=== PATIENT | female | born 1950 | race Caucasian/White ===

== ENCOUNTER 2018-01-29 13:16 | Inpatient (IN) | payer OTHER ==
[~2018-01-29] VITALS: Ht 165.1 cm; Wt 83.9 kg
--- NOTE | 2018-01-29 13:21 | NUR ---
250ml infused by RA 73 enroute to ER, patient is AOx4, HOSKINS, +nausea with active vomiting noted (bile-colored gastric contents of small amount)
[2018-01-29] MEDS ORDERED: IV NORMAL SALINE 500 ML BAG IV ONE ×3 (13:30→16:15)
--- NOTE | 2018-01-29 13:32 | NUR ---
Another 250ml infused, monitored closely.
[2018-01-29] MEDS ORDERED: ONDANSETRON 4 MG/2 ML VIAL ONE (13:35)
[2018-01-29] MEDS ORDERED: ONDANSETRON IV *ER 4 MG/2 ML VIAL IV ONE (13:45)
--- NOTE | 2018-01-29 13:51 | NUR ---
SBP is low, MD notified. Patient is AOX4, calm and breathing easily, denies any discomfort, conversant, smiling appropriately, NAD.
[2018-01-29 14:27] LABS: BASOPHILS % (AUTO) 0.7 % (0.0-2.0); HEMATOCRIT 31.5 % (31.2-41.9); HEMOGLOBIN 10.3 g/dL (10.9-14.3); LYMPHOCYTES # (AUTO) 0.8 K/uL (20.0-40.0); LYMPHOCYTES % (AUTO) 26.5 % (20.5-51.5); MEAN CORPUSCULAR HEMOGLOBIN 33.5 uug (24.7-32.8); MEAN CORPUSCULAR HGB CONC 33 g/dL (32.3-35.6); MEAN CORPUSCULAR VOLUME 102.7 fL (75.5-95.3); MONOCYTES # (AUTO) 0.1 K/uL (2.0-10.0); MONOCYTES % (AUTO) 4.2 % (0.0-11.0); NEUTROPHILS # (AUTO) 1.9 K/uL (1.8-8.9); NEUTROPHILS % (AUTO) 67.6 % (38.5-71.5); PLATELET COUNT (AUTO) 166 K/uL (179-408); RED BLOOD CELL COUNT(AUTO) 3.07 MIL/uL (3.63-4.92); WHITE BLOOD COUNT (AUTO) 2.9 K/uL (3.8-11.8)
[2018-01-29 14:29] LABS: CREATININE 2.1 mg/dL (0.6-1.3); POTASSIUM 4.6 mmol/L (3.5-5.1)
[2018-01-29 14:35] LABS: BILIRUBIN,DIRECT 0.5 mg/dL (0.0-0.2); TOTAL PROTEIN, SERUM 4.9 g/dL (6.4-8.2)
[2018-01-29] MEDS ORDERED: ACID1TAB4 PO (14:46)
[2018-01-29] MEDS ORDERED: MIDO2.5T PO (14:46)
[2018-01-29] MEDS ORDERED: SODI650T PO (14:46)
[2018-01-29] MEDS ORDERED: FEBU40TA PO (14:46)
[2018-01-29] MEDS ORDERED: MAGN400T6 PO (14:46)
[2018-01-29] MEDS ORDERED: PANT40TA4 PO (14:46)
[2018-01-29] MEDS ORDERED: POTA10TA15 PO (14:46)
[2018-01-29] MEDS ORDERED: TRAM50TA2 PO (14:46)
[2018-01-29] MEDS ORDERED: ASPI81TA31 PO (14:46)
--- NOTE | 2018-01-29 15:04 | NUR ---
another 500ml infused, pt tolerating well
[2018-01-29 15:43] LABS: *BLOOD, URINE NEGATIVE (NEGATIVE); *CLARITY,URINE SLIGHTLY CLOUDY (CLEAR); *COLOR,URINE DARK YELLOW (YELLOW); *KETONES,URINE 1+ (NEGATIVE); *PROTEIN,URINE 1+ (NEGATIVE); *UROBILINOGEN,URINE 0.2 E.U./dl (NORMAL); LEUKOCYTE ESTERASE ,URINE NEGATIVE (NEGATIVE); NITRITE, URINE NEGATIVE (NEGATIVE); UGLUCOSE NEGATIVE (NEGATIVE)
[2018-01-29 15:44] LABS: *BILIRUBIN,URIN 2+ (NEGATIVE)
--- NOTE | 2018-01-29 15:44 | NUR ---
TOTAL of 1500ml normal saline was infused, pending results and disposition.
[2018-01-29 15:51] LABS: BACTERIA,URINE RARE /HPF (NONE SEEN); RBC,URINE 0-3 /HPF (0-3); SQUAMOUS EPITHELIAL CELL,UR FEW /HPF (NONE SEEN); WBC,URINE 0-3 /HPF (0-3)
--- NOTE | 2018-01-29 16:10 | NUR ---
Patient is resting comfortably on gurney with family at bedside, denies any nausea, denies dizziness. Patient is calm & breathing easily. Extra warm blankets on.
--- NOTE | 2018-01-29 16:19 | NUR ---
Per pt to be admitted to CCU. Nursing comfort station supervisor notified for CCU bed and need for PICC Line placement (as ordered by ).
--- NOTE | 2018-01-29 16:27 | NUR ---
Another 500ml IV normal saline was infused. [id number] of normal saline given. Patient tolerated the IV fluids boluses well.
[2018-01-29] MEDS ORDERED: VANCOMYCIN IV 200 ML ONE (16:28)
[2018-01-29] MEDS ORDERED: VANCOMYCIN IV 1,000 MG in IV DEXTROSE 5% 250 ML IV ONE (16:30)
[2018-01-29] MEDS ORDERED: MEROPENEM 1,000 MG in IV NORMAL SALINE 250 ML IV ONE (16:30)
[2018-01-29] MEDS ORDERED: NOREPINEPHRINE BITARTRATE 8 MG in IV DEXTROSE 5% 500 ML IV ONE (16:30)
--- NOTE | 2018-01-29 16:50 | NUR ---
spoke with Dandre Ireland via telephone and pt's admission status has been changed to JOSEPHINE. Nursing supervisor capacitor processing updated on status.
--- NOTE | 2018-01-29 17:19 | NUR ---
Patient is eating soft dinner tray with good appetite.
--- NOTE | 2018-01-29 17:48 | NUR ---
IV meropenem infusing enroute to [facility], endorsed to MAU Pardo. IV Levophed bag was returned to pharmacy.
[2018-01-29] MEDS ORDERED: NOREPINEPHRINE BITARTRATE 8 MG in IV DEXTROSE 5% 500 ML IV PRN (18:30)
[2018-01-29] MEDS ORDERED: MAGNESIUM HYDROXIDE 30 ML LIQUID UDC PO PRN (18:30)
[2018-01-29] MEDS ORDERED: Z GUARD REMEDY PASTE 57 GM TUBE TOP PRN (18:30)
[2018-01-29] MEDS ORDERED: MORPHINE SULFATE 2 MG/1 ML DISP.SYRIN IV PRN (18:30)
[2018-01-29] MEDS ORDERED: ACETAMINOPHEN 325 MG TABLET PO PRN (18:30)
[2018-01-29] MEDS ORDERED: ZOLPIDEM 5 MG TABLET PO PRN (18:30)
[2018-01-29 18:41] VITALS: BP 113/65
--- NOTE | 2018-01-29 18:42 | NUR ---
AND SON AT BEDSIDE. REILLY [phone]. SOPHIE (SON) [phone].
--- NOTE | 2018-01-29 18:44 | NUR ---
RIGHT AC 20 GUAGE THAT WAS PLACED BY ER PHYSICIAN INFILTRATED. LAB IN ROOM TRYING TO GET BLOOD.
[2018-01-29] MEDS ORDERED: MORPHINE SULFATE 4 MG/1 ML DISP.SYRIN IV PRN (19:00)
[2018-01-29] MEDS ORDERED: FLUCONAZOLE 200 MG/NS 100ML IV 200 MG in PREMIXED 1 EACH IV SCH (19:00)
--- NOTE | 2018-01-29 19:20 | NUR ---
PATIENT WILL BE GOING BACK TO ER. REPORT GIVEN TO BETO LEÓN.
--- NOTE | 2018-01-29 20:00 | NUR ---
ASSISTED ER DOCTOR FOR CENTRAL PLACEMENT. DOCTOR VEGA MADE AWARE OF CRITICAL LACTIC ACID INCREASE TO 4.8. RIGHT AC THAT WAS PLACED IN ER WAS DISCONTINUED.
--- NOTE | 2018-01-29 20:10 | NUR ---
Dr. Alan Mccord ( MD) in room inserting central line.
[2018-01-29] MEDS ORDERED: LIDOCAINE HCL 1% 20 ML VIAL ONE (20:13)
--- NOTE | 2018-01-29 20:36 | NUR ---
REPORT GIVEN TO CHARGE NURSE BENJA LEÓN.
--- NOTE | 2018-01-29 20:40 | NUR ---
S/P Central line insertion via right groin w/ 3 ports. IVF NS at 100 ml/hr started as ordered. DNR/DNI status but JOSEPHINE level of care. Current vital signs 96/54 HR 52 RR 18 O2Sat 100% RA.
[2018-01-29] MEDS ORDERED: MORPHINE SULFATE 4 MG/1 ML DISP.SYRIN IV STA (20:43)
[2018-01-29 20:51] VITALS: BP 108/45
[2018-01-29] MEDS: IV NS 1000 ML 1,000 ML IV PRN (21:24)
[2018-01-29] MEDS ORDERED: MEROPENEM 1 G in IV NORMAL SALINE 100 ML IV SCH (22:00)
[2018-01-29 22:30] VITALS: BP 96/54
--- NOTE | 2018-01-29 22:40 | NUR ---
Received a call from the lab with the following critical lab results: INR > 10.0, PT > 100, PTT 32.5. Paged Dandre Ireland for further orders.
--- NOTE | 2018-01-29 23:50 | NUR ---
For transfusion of 2 units FFP. Signed consent form for Blood transfusion in chart.
[2018-01-29 23:59] VITALS: BP 101/55
[2018-01-30] VITALS (16 sets, daily range): BP systolic 93–106; BP diastolic 45–72
--- NOTE | 2018-01-30 03:39 | NUR ---
Patient awake & alert, vital signs are WNL. First unit Fresh frozen plasma started as ordered. Sinus eleon on the monitor.
[2018-01-30] MEDS: MEROPENEM 500 MG in IV NORMAL SALINE 50 ML IV SCH ×2 (03:47→16:50)
--- NOTE | 2018-01-30 05:20 | NUR ---
Patient tolerated 1st unit of FFP, no sign of adverse reaction noted, vital signs WNL. Second unit of FFP started. Will continue to monitor. Tele- Sinus eleno.
--- NOTE | 2018-01-30 06:21 | NUR ---
Patient remains AAOX4. In no acute distress. Sinus eleno on tele at 55/min. Denies any pain or SOB. Both upper and lower extremities still swollen. Oozing small to moderate amount of drainage on both arms. Extremities elevated with pillows. Central line on right femoral area intact and patent. IVF infusing. No adverse reaction noted from FFP transfusion. Needs attended to and met. Safety measure maintained and call yadav within reach.
--- NOTE | 2018-01-30 06:58 | NUR ---
2 units Fresh Frozen Plasma completed, patient tolerated. No Acute resp distress, vital signs WNL. Sinus eleno on the monitor.
--- NOTE | 2018-01-30 08:00 | NUR ---
AWAKE ALERT AND ORIENTED X3 NO SS OF PAIN OR ACUTE DISTRESS CONTINUE CURRENT TX PLAN
[2018-01-30] MEDS: PANTOPRAZOLE SODIUM 40 MG TABLET.DR PO SCH (08:15)
[2018-01-30] MEDS: ACIDOPHILUS/BULGARICUS CHEW TAB PO SCH ×2 (08:15→17:15)
[2018-01-30] MEDS: MIDODRINE HCL 2.5 MG TABLET PO SCH ×3 (08:15→17:15)
[2018-01-30] MEDS: ASPIRIN 81 MG TAB.CHEW PO SCH (08:15)
[2018-01-30] MEDS: IV NS 1000 ML 1,000 ML IV PRN (08:18)
[2018-01-30 08:48] LABS: BASOPHILS % (AUTO) 0.7 % (0.0-2.0); EOSINOPHILS # (AUTO) 0.1 K/uL (0.0-0.7); EOSINOPHILS % (AUTO) 2.3 % (0.0-7.0); HEMATOCRIT 22.5 % (31.2-41.9); HEMOGLOBIN 7.7 g/dL (10.9-14.3); LYMPHOCYTES # (AUTO) 1.2 K/uL (20.0-40.0); LYMPHOCYTES % (AUTO) 42.1 % (20.5-51.5); MEAN CORPUSCULAR HEMOGLOBIN 33.5 uug (24.7-32.8); MEAN CORPUSCULAR HGB CONC 34 g/dL (32.3-35.6); MEAN CORPUSCULAR VOLUME 98.4 fL (75.5-95.3); MONOCYTES # (AUTO) 0.2 K/uL (2.0-10.0); MONOCYTES % (AUTO) 6.7 % (0.0-11.0); NEUTROPHILS # (AUTO) 1.3 K/uL (1.8-8.9); NEUTROPHILS % (AUTO) 48.2 % (38.5-71.5); PLATELET COUNT (AUTO) 151 K/uL (179-408); WHITE BLOOD COUNT (AUTO) 2.8 K/uL (3.8-11.8)
[2018-01-30 08:50] LABS: RED BLOOD CELL COUNT(AUTO) 2.29 MIL/uL (3.63-4.92)
[2018-01-30 08:57] LABS: BILIRUBIN,TOTAL 0.9 mg/dL (0.2-1.0); CREATININE 2.1 mg/dL (0.6-1.3); MAGNESIUM 1.5 mg/dL (1.8-2.4); PHOSPHOROUS 2.8 mg/dL (2.5-4.9); POTASSIUM 4.3 mmol/L (3.5-5.1); TOTAL PROTEIN, SERUM 4.2 g/dL (6.4-8.2)
[2018-01-30 09:06] LABS: THYROID STIMULATING HORMONE 2.463 mIU/mL (0.358-3.740)
[2018-01-30 09:12] LABS: EOSINOPHILS % (MANUAL) 2 % (0-8); LYMPHOCYTES % (MANUAL) 42 % (20-40); MONOCYTES % (MANUAL) 6 % (2-10); NEUTROPHILS % (MANUAL) 50 % (42-75)
[2018-01-30] MEDS: MAGNESIUM SULFATE/D5W 100 ML IV SCH ×4 (11:18→15:02)
--- NOTE | 2018-01-30 11:37 | NUR ---
Clinical Pharmacy Note: Vancomycin Pharmacy to dose Subjective: To start vancomycin in this 67 y/o female for indication of sepsis. Objective: weight 142lbs height 5'5'' BUN 16 Scr 2.1 (ARF) wbc 2.8 temp 98.2 1gm given in ER 01/29 @1633 Random today at 1500 Assessment/plan Due to pt's renal function, will dose per level. Random ordered today at 1500. Will check level and dose as needed. Will follow Addendum: 01/30/18 at 1617 by ISAAC MARIO ADM RANDOM LEVEL 8.3, WILL DOSE 1GM X 1 FOR TODAY AND CHECK RANDOM AGAIN TOMORROW AT 1500
--- NOTE | 2018-01-30 12:00 | NUR ---
SEEN BY JOELLEN VEGA REVIEWED LABS WITH ORDERS. SEE NOTES
--- NOTE | 2018-01-30 15:38 | NUR ---
PATIENT CONTINUE TO FEEL BETTER, NO SS OF PAIN OR DISTRESS, BEDREST. SEEN BY DR PEREZ SEE NOTES
[2018-01-30] MEDS ORDERED: VANCOMYCIN IV 1 G in PREMIXED 0 EACH IV ONE (17:00)
--- NOTE | 2018-01-30 17:44 | NUR ---
ABDOMINAL WOUND CLEANSE WITH NS THEN COVERED WITH STERILE DRESSING
--- NOTE | 2018-01-30 18:15 | NUR ---
SEEN BY DR PEREZ SEE NOTES
[2018-01-30] MEDS ORDERED: FLUCONAZOLE 200 MG/NS 100ML IV 100 MG in PREMIXED 1 EACH IV SCH (19:00)
--- NOTE | 2018-01-30 19:39 | NUR ---
BACK FROM CT, AAOX4 DENIES PAIN OR ANY DISTRESS ON ASSESSMENT. SAFETY MEASURES IN PLACE, WILL CONTINUE TO MONITOR PATIENT
[2018-01-30] MEDS ORDERED: PHYTONADIONE 5 MG TABLET PO ONE (20:00)
[2018-01-30] MEDS ORDERED: PHYTONADIONE 5 MG TABLET ONE (21:18)
[2018-01-30 21:44] LABS: *BILIRUBIN,URIN NEGATIVE (NEGATIVE); *BLOOD, URINE 2+ (NEGATIVE); *CLARITY,URINE SLIGHTLY CLOUDY (CLEAR); *COLOR,URINE YELLOW (YELLOW); *KETONES,URINE NEGATIVE (NEGATIVE); *PROTEIN,URINE NEGATIVE (NEGATIVE); *UROBILINOGEN,URINE 0.2 E.U./dl (NORMAL); LEUKOCYTE ESTERASE ,URINE 3+ (NEGATIVE); NITRITE, URINE NEGATIVE (NEGATIVE); PH,URINE 5.5 (5.0-8.0); UGLUCOSE NEGATIVE (NEGATIVE)
[2018-01-30 21:49] LABS: *CREATININE,URINE 46.7 mg/dL (30-125); *URINE TOTAL PROTEIN RANDOM 7.7 mg/dL (<150/24HR); BACTERIA,URINE FEW /HPF (NONE SEEN); SQUAMOUS EPITHELIAL CELL,UR FEW /HPF (NONE SEEN)
--- NOTE | 2018-01-30 22:04 | NUR ---
REPORTED TO TRAFFIC CONTROL OFFICER TRAVEL NURSE QUENTIN MALDONADO INR 1.60, PT 19.3 LEVELS, WILL ADVISE NEXT STEP
[2018-01-31] VITALS (7 sets, daily range): BP systolic 99–117; BP diastolic 51–66
[2018-01-31] MEDS: IV NS 1000 ML 1,000 ML IV PRN ×2 (03:46→16:14)
[2018-01-31] MEDS: MEROPENEM 500 MG in IV NORMAL SALINE 50 ML IV SCH ×2 (03:46→16:01)
--- NOTE | 2018-01-31 06:15 | NUR ---
PATIENT SLEPT WELL THROUGH THE SHIFT, NO C/O PAIN OR ACUTE DISTRESS ON THIS SHIFT. V/S WNL NO FEVER ON THIS SHIFT. ALL NEEDS MET
[2018-01-31 06:49] LABS: BILIRUBIN,TOTAL 0.9 mg/dL (0.2-1.0); CREATININE 1.9 mg/dL (0.6-1.3); MAGNESIUM 2.1 mg/dL (1.8-2.4); PHOSPHOROUS 2.4 mg/dL (2.5-4.9)
[2018-01-31 06:58] LABS: EOSINOPHILS # (AUTO) 0.1 K/uL (0.0-0.7); EOSINOPHILS % (AUTO) 4.7 % (0.0-7.0); HEMATOCRIT 23.8 % (31.2-41.9); HEMOGLOBIN 7.9 g/dL (10.9-14.3); LYMPHOCYTES # (AUTO) 0.8 K/uL (20.0-40.0); LYMPHOCYTES % (AUTO) 38.4 % (20.5-51.5); MEAN CORPUSCULAR HEMOGLOBIN 33.5 uug (24.7-32.8); MEAN CORPUSCULAR HGB CONC 33 g/dL (32.3-35.6); MEAN CORPUSCULAR VOLUME 100.4 fL (75.5-95.3); MONOCYTES # (AUTO) 0.2 K/uL (2.0-10.0); MONOCYTES % (AUTO) 8.3 % (0.0-11.0); NEUTROPHILS % (AUTO) 47.6 % (38.5-71.5); PLATELET COUNT (AUTO) 144 K/uL (179-408); WHITE BLOOD COUNT (AUTO) 2.1 K/uL (3.8-11.8)
[2018-01-31 07:02] LABS: RED BLOOD CELL COUNT(AUTO) 2.37 MIL/uL (3.63-4.92)
[2018-01-31 08:31] LABS: THYROID STIMULATING HORMONE 3.43 mIU/mL (0.358-3.740)
[2018-01-31] MEDS: ASPIRIN 81 MG TAB.CHEW PO SCH (08:40)
[2018-01-31] MEDS: PANTOPRAZOLE SODIUM 40 MG TABLET.DR PO SCH (08:40)
[2018-01-31] MEDS: ACIDOPHILUS/BULGARICUS CHEW TAB PO SCH ×2 (08:40→17:47)
[2018-01-31] MEDS: MIDODRINE HCL 2.5 MG TABLET PO SCH (08:41)
[2018-01-31 10:59] LABS: EOSINOPHILS % (MANUAL) 6 % (0-8); LYMPHOCYTES % (MANUAL) 30 % (20-40); MONOCYTES % (MANUAL) 9 % (2-10); NEUTROPHILS % (MANUAL) 55 % (42-75)
[2018-01-31] MEDS: ALBUMIN HUMAN 25% 25 GM in PREMIXED 1 EACH IV SCH ×3 (12:29→23:15)
[2018-01-31] MEDS: MIDODRINE HCL 5 MG TABLET PO SCH ×2 (12:33→17:48)
--- NOTE | 2018-01-31 12:40 | NUR ---
WOUND CARE CONSULT: PT PRESENTS WITH ABDOMINAL WOUND, GENERALIZED EDEMA WITH WEEPING OF UPPER EXTREMITIES AND RT LOWER LEG, PRESENT ON ADMISSION. PT HAS SCRATCHES TO ANTERIOR RT LOWER LEG WHICH SHE STATES IS FROM HER DOG JUMPING ON HER. RECOMMEND SURGICAL CONSULT FOR ABDOMINAL WOUND. RECOMMENDATIONS MADE FOR WOUND CARE AND SKIN PROTECTION. DISCUSSED WITH NURSING STAFF. PT IS AMBULATORY TO BATHROOM. WILL SEE PRN. MEDINA IN AGREEMENT WITH PLAN OF CARE. CURRENT ALICIA SCORE IS 17. Addendum: 01/31/18 at 1243 by BILL GONZALEZ RN Amended: Links added.
[2018-01-31] MEDS ORDERED: BACITRACIN/POLYMYXIN B OINT 15 GM TUBE TOP ONE (12:45)
[2018-01-31] MEDS: BACITRACIN/POLYMYXIN B OINT 15 GM TUBE TOP SCH ×2 (13:15→20:30)
[2018-01-31] MEDS ORDERED: NEUTRA PHOS PACKET PO ONE (15:30)
--- NOTE | 2018-01-31 15:30 | NUR ---
FIRST UNIT OF FRESH FROZEN PLASMA STARTED, WILL CLOSELY MONITOR
--- NOTE | 2018-01-31 15:43 | NUR ---
Clinical Pharmacy Note: Vancomycin Pharmacy to dose Subjective: To continue vancomycin in this 67 y/o female for indication of sepsis. Objective: weight 142lbs height 5'5'' BUN 14 Scr 1.9 (ARF) wbc 2.1 temp 97.8 Vanco random today at 1500: 13.2 Assessment/plan Due to pt's renal function, will dose per level. Since vanco random level is 13.2 today, will give vanco 1000mg IVPB x1 dose today . Pharmacist shall check renal function in am & decide when to order next random level for further dosing. Will follow
--- NOTE | 2018-01-31 16:15 | NUR ---
PT 1 UNIT OF FRESH FROZEN PLASMA COMPLETED. PT HAD NO REACTION TO TRANSFUSION, PT STABLE
--- NOTE | 2018-01-31 16:25 | NUR ---
SECOND UNIT OF FRESH FROZEN PLASMA STARTED, WILL CLOSELY MONITOR
[2018-01-31] MEDS ORDERED: VANCOMYCIN IV 1 G in PREMIXED 0 EACH IV ONE (16:30)
--- NOTE | 2018-01-31 16:46 | NUR ---
SECOND UNIT OF FRESH FROZEN PLASMA COMPLETED. PATIENT TOLERATED WELL, PT STABLE, VITAL SIGNS WNL.
[2018-01-31] MEDS ORDERED: LEVOFLOXACIN 500 MG TABLET PO SCH ×2 (17:15)
--- NOTE | 2018-01-31 21:15 | NUR ---
PT'S A/A/O X4,ASSISTED PT TO BATHROOM REQUEST W/MAXIMAL ASSISTANCE,PT'S ABLE TO USE WALKER STATED THAT"I COULD WALK THIS MORNING AND I WANT TO GO BATHROOM",PT'S ABLE TO HAVE BM IN THE BATHROOM AT THIS TIME,STATED THAT"I FELT TOTALLY BETTER".AIR MATTRESS'S APPLIED AT THIS TIME;EDUCATED TO PT,SHE VERBALIZED UNDERSTANDING AND COOPERATIVE NOTED.SKIN CARE TO PT.KEPT COMFORT.CALL-LIGHT WITHIN REACH.
[2018-02-01] VITALS (19 sets, daily range): BP systolic 95–141; BP diastolic 52–96
[2018-02-01] MEDS: IV NS 1000 ML 1,000 ML IV PRN (04:00)
[2018-02-01 04:08] LABS: *IMMUNOGLOBULIN G, SERUM 1252 mg/dL (700-1600); IMMUNOGLOBULIN A, SERUM 366 mg/dL (87-352); IMMUNOGLOBULIN M, SERUM 131 mg/dL (26-217)
[2018-02-01] MEDS: ALBUMIN HUMAN 25% 25 GM in PREMIXED 1 EACH IV SCH (05:33)
--- NOTE | 2018-02-01 06:00 | NUR ---
PT'S COMFORTABLE ON BED;DENIED OF PAIN OR ANY DISCOMFORT,TOLERATED WELL WITH TX ORDER.NO DISTRESS NOTED IN THE SHIFT.
[2018-02-01 08:18] LABS: CREATININE 1.6 mg/dL (0.6-1.3); PHOSPHOROUS 2.6 mg/dL (2.5-4.9); POTASSIUM 4.2 mmol/L (3.5-5.1)
[2018-02-01 08:30] LABS: EOSINOPHILS % (AUTO) 2.7 % (0.0-7.0); LYMPHOCYTES # (AUTO) 0.8 K/uL (20.0-40.0); MONOCYTES # (AUTO) 0.1 K/uL (2.0-10.0); NEUTROPHILS # (AUTO) 0.8 K/uL (1.8-8.9); PLATELET COUNT (AUTO) 118 K/uL (179-408)
[2018-02-01 08:32] LABS: BASOPHILS % (AUTO) 0.7 % (0.0-2.0); EOSINOPHILS # (AUTO) 0.1 K/uL (0.0-0.7); LYMPHOCYTES % (AUTO) 43.3 % (20.5-51.5); MEAN CORPUSCULAR HEMOGLOBIN 33.1 uug (24.7-32.8); MEAN CORPUSCULAR HGB CONC 33 g/dL (32.3-35.6); MEAN CORPUSCULAR VOLUME 99.3 fL (75.5-95.3); MONOCYTES % (AUTO) 7.6 % (0.0-11.0); NEUTROPHILS % (AUTO) 45.7 % (38.5-71.5)
[2018-02-01 08:34] LABS: RED BLOOD CELL COUNT(AUTO) 1.98 MIL/uL (3.63-4.92)
[2018-02-01 08:38] LABS: WHITE BLOOD COUNT (AUTO) 1.9 K/uL (3.8-11.8)
[2018-02-01 08:39] LABS: HEMOGLOBIN 6.5 g/dL (10.9-14.3)
[2018-02-01 08:40] LABS: HEMATOCRIT 19.6 % (31.2-41.9)
[2018-02-01] MEDS: MIDODRINE HCL 5 MG TABLET PO SCH ×3 (09:00→17:17)
[2018-02-01 09:15] LABS: BASOPHILS % (MANUAL) 2 % (0-2); EOSINOPHILS % (MANUAL) 5 % (0-8); LYMPHOCYTES % (MANUAL) 35 % (20-40); MONOCYTES % (MANUAL) 5 % (2-10); NEUTROPHILS % (MANUAL) 53 % (42-75)
[2018-02-01] MEDS: ACIDOPHILUS/BULGARICUS CHEW TAB PO SCH ×2 (09:34→17:16)
[2018-02-01] MEDS: ASPIRIN 81 MG TAB.CHEW PO SCH (09:34)
[2018-02-01] MEDS: PANTOPRAZOLE SODIUM 40 MG TABLET.DR PO SCH (09:34)
[2018-02-01] MEDS: BACITRACIN/POLYMYXIN B OINT 15 GM TUBE TOP SCH ×2 (09:40→21:14)
--- NOTE | 2018-02-01 11:44 | NUR ---
Nutrition consult: Patient has been seen for sepsis and malnutrition. Comments Intervention: - Continue soft diet - Patient may benefit from MVI+minerals for wound healing - Recommend Pro-Stat BID to provide additional 30 gm protein daily for wound healing and hypoalbuminemia Monitor/Evaluate: - PO intakes - Skin - Labs: BUN/Creat, electrolytes, Alb Expected Outcomes/Goals - PO intakes continue to average at least 75% - Labs trending WNL - No further skin breakdown, skin integrity WNL Addendum: 02/01/18 at [address] Amended: Links added.
[2018-02-01] MEDS: LEVOFLOXACIN 250 MG TABLET PO SCH (17:16)
--- NOTE | 2018-02-01 19:55 | NUR ---
Blood transfusion of 1 unit PRBC completed. No noted reaction during the whole course of blood transfusion. Patient remains alert verbally responsive,not in any form of acute distress. No complain of any pain or discomfort.
--- NOTE | 2018-02-01 21:00 | NUR ---
WOUND TX DONE ON ABDOMEN PER ORDER. DRESSING DRY AND INTACT.
--- NOTE | 2018-02-01 22:20 | NUR ---
CRYO THAWED 1 UNIT STARTED. PRODUCT UNABLE TO SCAN, (NOT YET DEFINED) BLOOD BANK AWARE.
--- NOTE | 2018-02-01 23:00 | NUR ---
CRYO THAWED 1 BAG COMPLETED. NO A/E NOTED.
--- NOTE | 2018-02-01 23:40 | NUR ---
STARTED ONE MORE BAG OF CRYO THAWED. UNABLE TO SCAN, BLOOD BANK AWARE. SEE TRANSFUSION RECORD IN CHART. WILL MONITOR.
[2018-02-02] VITALS (12 sets, daily range): BP systolic 126–166; BP diastolic 66–85
--- NOTE | 2018-02-02 00:35 | NUR ---
CRYO THAWED 1 BAG COMPLETED, NO A/E NOTED. V/S STABLE. SEE BLOOD TRANSFUSION RECORD PAPER IN CHART.
[2018-02-02] MEDS: IV NS 1000 ML 1,000 ML IV PRN ×2 (01:40→18:57)
--- NOTE | 2018-02-02 02:35 | NUR ---
PT DOES NOT WANT TO SIGN THE CONSENT AT THIS TIME.
[2018-02-02 05:07] LABS: A/G RATIO 0.9 (0.7-1.7); ALBUMIN 1.8 g/dL (2.9-4.4); ALPHA-1-GLOBULIN 0.1 g/dL (0.0-0.4); ALPHA-2-GLOBULIN 0.2 g/dL (0.4-1.0); BETA GLOBULIN 0.5 g/dL (0.7-1.3); GAMMA GLOBULIN 1.3 g/dL (0.4-1.8); M-SPIKE Not Observed g/dL (Not Observed)
[2018-02-02 06:26] LABS: BASOPHILS % (AUTO) 0.6 % (0.0-2.0); EOSINOPHILS # (AUTO) 0.1 K/uL (0.0-0.7); EOSINOPHILS % (AUTO) 2.6 % (0.0-7.0); HEMATOCRIT 23.6 % (31.2-41.9); LYMPHOCYTES # (AUTO) 0.8 K/uL (20.0-40.0); LYMPHOCYTES % (AUTO) 36.9 % (20.5-51.5); MEAN CORPUSCULAR HEMOGLOBIN 33.7 uug (24.7-32.8); MEAN CORPUSCULAR HGB CONC 34 g/dL (32.3-35.6); MEAN CORPUSCULAR VOLUME 99.3 fL (75.5-95.3); MONOCYTES # (AUTO) 0.2 K/uL (2.0-10.0); MONOCYTES % (AUTO) 8.2 % (0.0-11.0); NEUTROPHILS # (AUTO) 1.1 K/uL (1.8-8.9); NEUTROPHILS % (AUTO) 51.7 % (38.5-71.5); PLATELET COUNT (AUTO) 104 K/uL (179-408); WHITE BLOOD COUNT (AUTO) 2.2 K/uL (3.8-11.8)
[2018-02-02 06:38] LABS: RED BLOOD CELL COUNT(AUTO) 2.38 MIL/uL (3.63-4.92)
[2018-02-02 07:16] LABS: CREATININE 1.5 mg/dL (0.6-1.3); MAGNESIUM 1.7 mg/dL (1.8-2.4); PHOSPHOROUS 2.6 mg/dL (2.5-4.9); POTASSIUM 4.1 mmol/L (3.5-5.1)
--- NOTE | 2018-02-02 07:38 | NUR ---
RECEIVED A 67 Y/O FEMALE PT A CASE OF SEPSIS/SYNCOPE. A, OX3, BREATHING ON ROOM AIR. PT HAS A RT GROIN CVC LINE TRIPLE LUMEN , RECEIVING IVF N/S @ 100ML/HR. URINATING FREELY. PT HAS AN ABDOMINAL WOUND THAT IS COVERED WITH DAYRON. PLANNED TODAY AFTERNOON FOR A BONE MARROW ASPIRATION, CONSENT STILL NOT SIGNED. WILL FALLOW UP
[2018-02-02 08:06] LABS: CARBOHYDRATE ANTIGEN, 19-9 214 U/mL (0-35)
[2018-02-02] MEDS: MIDODRINE HCL 5 MG TABLET PO SCH ×3 (09:00→17:07)
[2018-02-02] MEDS: ACIDOPHILUS/BULGARICUS CHEW TAB PO SCH ×2 (09:30→17:07)
[2018-02-02] MEDS: PANTOPRAZOLE SODIUM 40 MG TABLET.DR PO SCH (09:30)
[2018-02-02] MEDS: BACITRACIN/POLYMYXIN B OINT 15 GM TUBE TOP SCH ×2 (09:48→21:33)
[2018-02-02] MEDS ORDERED: MAGNESIUM SULFATE/D5W 100 ML IV SCH (11:15)
--- NOTE | 2018-02-02 16:29 | NUR ---
FIRST UNIT OF FFP TRANSFUSION INITIATED , NO COMPLICATIONS. TO CONTINUE MONITORING.
[2018-02-02] MEDS: LEVOFLOXACIN 250 MG TABLET PO SCH (17:07)
[2018-02-02] MEDS ORDERED: LIDOCAINE HCL 1% 20 ML VIAL IJ PRN (19:45)
[2018-02-02] MEDS ORDERED: TRAMADOL HCL 50 MG TABLET PO PRN (20:45)
--- NOTE | 2018-02-02 20:48 | NUR ---
DR. PEREZ DOING BEDSIDE BONE MARROW ASPIRATION, LIDOCAINE 20ML TO 30 ML ADMINISTERED, THE REMAINDER DISCARDED BY DR. PEREZ. PHARMACY NOTIFIED.
--- NOTE | 2018-02-02 20:53 | NUR ---
MD DR PEREZ ADMINISTERED THE LIDOCAINE.
[2018-02-02] MEDS: ONDANSETRON 4 MG/2 ML VIAL IV PRN (22:32)
--- NOTE | 2018-02-02 22:32 | NUR ---
PATIENT TOLERATE PROCEDURE WELL, PATIENT MEDICATED FOR PAIN, KEPT HOB ELEVATED, CONT ON OXYGEN 5 LPM VIA NC. OXYGEN SAT 97%, CONT TO MONITOR.
[2018-02-03 03:25] VITALS: BP 127/79
[2018-02-03] MEDS: IV NS 1000 ML 1,000 ML IV PRN (05:24)
[2018-02-03 06:15] LABS: BASOPHILS % (AUTO) 0.6 % (0.0-2.0); EOSINOPHILS % (AUTO) 1.7 % (0.0-7.0); HEMATOCRIT 23.5 % (31.2-41.9); HEMOGLOBIN 7.8 g/dL (10.9-14.3); LYMPHOCYTES # (AUTO) 0.8 K/uL (20.0-40.0); LYMPHOCYTES % (AUTO) 29.3 % (20.5-51.5); MEAN CORPUSCULAR HEMOGLOBIN 32.5 uug (24.7-32.8); MEAN CORPUSCULAR HGB CONC 33 g/dL (32.3-35.6); MEAN CORPUSCULAR VOLUME 98.1 fL (75.5-95.3); MONOCYTES # (AUTO) 0.2 K/uL (2.0-10.0); MONOCYTES % (AUTO) 7.9 % (0.0-11.0); NEUTROPHILS # (AUTO) 1.7 K/uL (1.8-8.9); NEUTROPHILS % (AUTO) 60.5 % (38.5-71.5); PLATELET COUNT (AUTO) 96 K/uL (179-408); WHITE BLOOD COUNT (AUTO) 2.7 K/uL (3.8-11.8)
[2018-02-03 06:23] LABS: CREATININE 1.4 mg/dL (0.6-1.3); POTASSIUM 4.1 mmol/L (3.5-5.1)
--- NOTE | 2018-02-03 06:23 | NUR ---
PATIENT SLEPT MOST OF THE NIGHT, BILATERAL ARMS STILL WEEPING WITH WATER, NO COMPLAIN OF PAIN, R GROIN PICC LINE PATENT, INTACT, FLUSHES WELL, CONT TO MONITOR.
--- NOTE | 2018-02-03 07:57 | NUR ---
Awake, alert, oriented x 4. O2 at 4L/NC. IVF infusing.
[2018-02-03 08:09] LABS: EOSINOPHILS % (MANUAL) 2 % (0-8); LYMPHOCYTES % (MANUAL) 30 % (20-40); MONOCYTES % (MANUAL) 8 % (2-10); NEUTROPHILS % (MANUAL) 60 % (42-75)
[2018-02-03] MEDS: ACIDOPHILUS/BULGARICUS CHEW TAB PO SCH ×2 (08:26→17:34)
[2018-02-03] MEDS: PANTOPRAZOLE SODIUM 40 MG TABLET.DR PO SCH (08:26)
[2018-02-03] MEDS: ONDANSETRON 4 MG/2 ML VIAL IV PRN (08:26)
[2018-02-03] MEDS: MIDODRINE HCL 5 MG TABLET PO SCH ×3 (08:27→17:34)
[2018-02-03] MEDS: BACITRACIN/POLYMYXIN B OINT 15 GM TUBE TOP SCH ×2 (08:28→21:48)
--- NOTE | 2018-02-03 10:30 | NUR ---
Incontinence care with bed bath given. Noted shortness of breath on exertion. Resting between care. Wound care and Central line care done. Assisted out of bed by PT and ambulated.
[2018-02-03 12:00] VITALS: BP 126/89
--- NOTE | 2018-02-03 14:00 | NUR ---
Resting, not in distress. O2 decreased to 2L/NC. at bedside
[2018-02-03 15:32] VITALS: BP 135/92
--- NOTE | 2018-02-03 18:03 | NUR ---
Not in distress. Tolerating diet. Repositioned comfortably
--- NOTE | 2018-02-03 19:00 | NUR ---
RECEIVED PATIENT IN BED ALERT ORIENTED, NO COMPLAIN OF PAIN AT THIS TIME. TX CONT ON MULTIPLE WOUNDS, KEPT SITE CLEAN AND DRY. TURN AND REPOSITION, KEPT COMFORTABLE. R GROIN TRIPLE LUMEN PICC LINE INTACT, AND PATENT. CALL LIGHT WITHIN REACH.
[2018-02-03 20:12] VITALS: BP 131/81
[2018-02-04] MEDS: IV NS 1000 ML 1,000 ML IV PRN (00:19)
[2018-02-04 04:42] VITALS: BP 119/79
--- NOTE | 2018-02-04 06:30 | NUR ---
PATIENT SLEPT MOST OF THE NIGHT, NO SOB NO CHEST PAIN, OXYGEN SAT 100% AT 2LPM, TURN AND REPOSITION, KEPT CLEAN AND DRY, TX CONTINUE ON MULTIPLE WEEPING WOUNDS. CONT TO MONITOR.
--- NOTE | 2018-02-04 07:39 | NUR ---
Sleeping, appears comfortable. O2 at 2L/NC. IVF infusing
--- NOTE | 2018-02-04 09:00 | NUR ---
O2 removed, O2 sat RA 95%
[2018-02-04] MEDS: BACITRACIN/POLYMYXIN B OINT 15 GM TUBE TOP SCH (09:03)
[2018-02-04] MEDS: PANTOPRAZOLE SODIUM 40 MG TABLET.DR PO SCH (09:03)
[2018-02-04] MEDS: ACIDOPHILUS/BULGARICUS CHEW TAB PO SCH (09:03)
[2018-02-04] MEDS: MIDODRINE HCL 5 MG TABLET PO SCH (09:03)
[2018-02-04 11:09] VITALS: BP 132/57
--- NOTE | 2018-02-04 14:18 | NUR ---
With discharge order to home and to continue with previous home health, [facility]redited [facility] informed. Central line to right groin removed, dressing in place. Prescription and DC instruction given to patient, verbalized understanding. Went home per wheelchair in fair condition, not in distress, afebrile, accompanied by
== END 2018-02-04 14:15 | disposition home health service (06) | DRG 871 ==
LOC: ER 13:18 → TELE-TD 17:28 → MED 01-30 14:23 → TELE 01-30 14:30 → MED 01-31 15:35
PROVIDERS: ADMIT Nurse Practitioner Acute Care; ATTEND Nurse Practitioner Acute Care
PROC: 02HV33Z Insertion of Infusion Device into Superior Vena Cava, Percutaneous Approach (ICD-10-PCS; 2018-01-29)
PROC: B548ZZA Ultrasonography of Superior Vena Cava, Guidance (ICD-10-PCS; 2018-01-29)
PROC: 30233K1 Transfusion of Nonautologous Frozen Plasma into Peripheral Vein, Percutaneous Approach (ICD-10-PCS; 2018-01-30)
PROC: 30233N1 Transfusion of Nonautologous Red Blood Cells into Peripheral Vein, Percutaneous Approach (ICD-10-PCS; 2018-02-01)
PROC: 07DR3ZX Extraction of Iliac Bone Marrow, Percutaneous Approach, Diagnostic (ICD-10-PCS; principal; 2018-02-02)
DX: A41.9 Sepsis, unspecified organism (principal); R65.21 Severe sepsis with septic shock; N17.0 Acute kidney failure with tubular necrosis; E43 Unspecified severe protein-calorie malnutrition; D65 Disseminated intravascular coagulation [defibrination syndrome]; J18.9 Pneumonia, unspecified organism; D61.818 Other pancytopenia; C25.9 Malignant neoplasm of pancreas, unspecified; E87.2 Acidosis; J90 Pleural effusion, not elsewhere classified; D72.819 Decreased white blood cell count, unspecified; Z68.29 Body mass index [BMI] 29.0-29.9, adult; Z90.411 Acquired partial absence of pancreas; E86.9 Volume depletion, unspecified; E83.42 Hypomagnesemia; N18.9 Chronic kidney disease, unspecified; Z92.21 Personal history of antineoplastic chemotherapy; I12.9 Hypertensive chronic kidney disease with stage 1 through stage 4 chronic kidney disease, or unspecified chronic kidney disease; I95.9 Hypotension, unspecified; G90.8 Other disorders of autonomic nervous system; Z68.30 Body mass index [BMI] 30.0-30.9, adult; E88.09 Other disorders of plasma-protein metabolism, not elsewhere classified; D63.8 Anemia in other chronic diseases classified elsewhere; Z86.718 Personal history of other venous thrombosis and embolism; Z98.890 Other specified postprocedural states
CPT/HCPCS: 36415; 70030-TC; 71045; 71250; 82747; 82784; 83550; 83605; 83735; 84100; 84155; 84156; 84165; 84300; 84443; 85014; 85025; 85610; 85730; 86301; 86334; 86850; 86900; 86901; 86920; 87040; 87070; 87077; 87086; 93005; 97110; 97116; 97530; A4663; J1450; J2185; J2270; J2405; J3370; J3475; J3490; J7030; J7040; J7050; J7060; P9012-BL; P9016-BL; P9017-BL; P9021; P9047